=== PATIENT | female | born 1950 ===

== ENCOUNTER 2018-08-21 23:14 | Emergency (ER) | payer MEDICARE, OTHER ==
[2018-08-21] MEDS ORDERED: Sodium Chloride 0.9% 1,000 ML IV STA (23:33)
[2018-08-22 00:04] LABS: BASO # 0.1 K/uL (0.0-0.2); BASO % 1.2 % (0.0-2.0); EOS # 0.2 K/uL (0.0-0.7); EOS % 3.5 % (0.0-4.0); HEMOGLOBIN 11.2 g/dL (12.0-16.0); LYMPH # 0.5 K/uL (1.0-4.3); LYMPH % 10.7 % (20.0-40.0); MEAN CELL VOLUME 91.9 fl (81.0-99.0); MEAN CORPUSCULAR HEMOGLOBIN 31.7 pg (27.0-31.0); MEAN CORPUSCULAR HGB CONC 34.5 g/dL (33.0-37.0); MEAN PLATELET VOLUME 9.1 fl (7.2-11.7); MONO # 0.5 K/uL (0.0-0.8); MONO % 10.1 % (0.0-10.0); NEUT # 3.6 K/uL (1.8-7.0); NEUT % 74.5 % (50.0-75.0); NRBC % 0.1 % (0.0-0.0); RBC 3.52 Mil/uL (3.80-5.20); RED CELL DISTRIBUTION WIDTH 12.7 % (11.5-14.5); WHITE BLOOD COUNT 4.8 K/uL (4.8-10.8)
[2018-08-22 00:06] LABS: VENOUS BLOOD GAS PCO2 35 mmHg (40-60); VENOUS BLOOD GAS PO2 47 mm/Hg (30-55); VENOUS BLOOD PH 7.47 (7.32-7.43)
--- NOTE | 2018-08-22 00:11 | ED PDOC ---
HPI: Fever Time Seen by Provider: 08/21/18 23:29 Fever Onset Was: 08/13/18 What Antipyretic Given Prior To Arrival: Acetaminophen (q4-6 hour) Symptoms Associated With Fever: None Additional Comments: 68 yo female presents for evaluation of fever for over a week. PT states she feels tired with dizziness today. Pt states she was seen by Dr. Murillo and placed on cipro. Pt states she was told she had a UTI. Pt completed cipro but continued to have fever and is on 3rd day of bactrim. Pt reports no improvement. Pt states she has no urinary symptoms. Pt went to [employer] [place] this evening and felt lightheaded. Past Medical History Reviewed: Historical Data, Nursing Documentation, Vital Signs Vital Signs: Last Vital Signs Temp 98.3 F 08/22/18 02:34 Pulse 93 H 08/22/18 02:34 Resp 16 08/22/18 02:34 BP 124/83 08/22/18 02:34 Pulse Ox 100 08/22/18 02:34 - Medical History PMH: Diabetes, HTN, Hyperlipidemia - Surgical History Surgical History: No Surg Hx - Family History Family History: States: No Known Family Hx - Living Arrangements Living Arrangements: With Family - Social History Current smoker - smoking cessation education provided: No - Immunization History Hx Tetanus Toxoid Vaccination: No Hx Influenza Vaccination: No Hx Pneumococcal Vaccination: No - Home Medications Home Medications: Ambulatory Orders Medication Instructions Recorded Amitriptyline Hydrochloride 25 mg PO DAILY 07/04/13 [Elavil] Atenolol [Tenormin] 25 mg PO DAILY 07/04/13 Insulin Human (NPH)/Regular 30 units SUBCON BID 07/04/13 [Novolin 70/30 (70/30 units/ml) 10 ml] Lisinopril 20 mg PO DAILY 07/04/13 Meclizine [Meclizine*] 25 mg PO Q8H #30 tab 07/04/13 Pravastatin 07/04/13 Azithromycin [Zithromax Z-Grady] 08/07/15 Flovent Hfa 08/07/15 Mucinex 08/07/15 Ventolin HFA 90 mcg/actuation (8 g) 08/07/15 - Allergies Allergies/Adverse Reactions: Allergies Allergy/AdvReac Type Severity Reaction Status Date / Time No Known Allergies Allergy Verified 09/22/18 23:21 Review of Systems ROS Statement: Except As Marked, All Systems Reviewed And Found Negative Constitutional: Positive for: Fever, Chills Cardiovascular: Negative for: Chest Pain, Palpitations Respiratory: Negative for: Cough, Shortness of Breath Gastrointestinal: Negative for: Nausea, Vomiting Physical Exam - Reviewed Nursing Documentation Reviewed: Yes Vital Signs Reviewed: Yes - Physical Exam Appears: Positive for: Well, Non-toxic, No Acute Distress Head Exam: Positive for: ATRAUMATIC, NORMAL INSPECTION, NORMOCEPHALIC Skin: Positive for: Normal Color, Warm, DRY Eye Exam: Positive for: Normal appearance ENT: Positive for: Normal ENT Inspection Neck: Positive for: Normal, Painless ROM Cardiovascular/Chest: Positive for: Regular Rate, Rhythm Respiratory: Positive for: Normal Breath Sounds. Negative for: Accessory Muscle Use, Respiratory Distress Gastrointestinal/Abdominal: Positive for: Normal Exam, Soft. Negative for: Tenderness, Guarding, Rebound Back: Positive for: Normal Inspection Extremity: Positive for: Normal ROM Neurologic/Psych: Positive for: Alert, Oriented - Laboratory Results Result Diagrams: 08/21/18 23:55 08/21/18 23:55 - ECG O2 Sat by Pulse Oximetry: 97 Medical Decision Making Medical Decision Making: Labs reviewed from earlier in the week. * Urine with (+) nitrites and leuks. * High cholesterol. * WBC normal. no fever on re-evaluation. Tylenol at home > 4 hours ago. LAbs normal. CXR without acute cardiopulmonary disease. Urine normal. Discussed with Dr. Contreras. Disposition - Clinical Impression Clinical Impression: Viral illness - Patient ED Disposition Is Patient to be Admitted: No Counseled Patient/Family Regarding: Diagnosis, Need For Followup - Disposition Referrals: Bobo Murillo MD [Staff Provider] - Disposition: Routine/Home Disposition Time: 03:35 Condition: STABLE Instructions: Viral Syndrome (DC) Forms: [employer] (Turkmen) Print Language: ALBANIAN
[2018-08-22 00:37] LABS: ALB/GLOB RATIO 1.1 (1.0-2.1); ALBUMIN 4.1 g/dL (3.5-5.0); CALCIUM 9.5 mg/dL (8.4-10.2)
[2018-08-22 01:13] LABS: SQUAMOUS EPITHIAL 17 /hpf (0-5); URINE BACTERIA OCC (<OCC); URINE BILIRUBIN NEGATIVE (NEGATIVE); URINE BLOOD NEGATIVE (NEGATIVE); URINE CLARITY CLOUDY (Clear); URINE COLOR YELLOW (YELLOW); URINE GLUCOSE (UA) NEG (Normal); URINE LEUKOCYTE ESTERASE TRACE Leu/uL (Negative); URINE PROTEIN 100 mg/dL (NEGATIVE); URINE UROBILINOGEN 0.2-1.0 mg/dL (0.2-1.0)
[2018-08-22 02:34] VITALS: BP 124/83; PULSE 93; RESP 16; TEMP 98.3
[2018-08-22 03:39] VITALS: O2SAT 97
--- NOTE | 2018-08-22 07:58 | CT ---
Date of service: 08/22/2018 PROCEDURE: CT HEAD WITHOUT CONTRAST. HISTORY: dizziness, vomiting COMPARISON: None available. TECHNIQUE: Axial computed tomography images were obtained through the head/brain without intravenous contrast. Radiation dose: Total exam DLP = mGy-cm. This CT exam was performed using one or more of the following dose reduction techniques: Automated exposure control, adjustment of the mA and/or kV according to patient size, and/or use of iterative reconstruction technique. FINDINGS: HEMORRHAGE: No intracranial hemorrhage. BRAIN: No mass effect or edema. No atrophy or chronic microvascular ischemic changes. VENTRICLES: Unremarkable. No hydrocephalus. CALVARIUM: Unremarkable. PARANASAL SINUSES: Unremarkable as visualized. No significant inflammatory changes. MASTOID AIR CELLS: Unremarkable as visualized. No inflammatory changes. OTHER FINDINGS: None. IMPRESSION: Normal CT of the Head.
--- NOTE | 2018-08-22 08:35 | RAD ---
Date of service: 08/22/2018 HISTORY: fever COMPARISON: 04/02/2011 TECHNIQUE: Chest PA and lateral FINDINGS: LUNGS: No active pulmonary disease. PLEURA: No significant pleural effusion identified. No pneumothorax apparent. CARDIOVASCULAR: Normal. OSSEOUS STRUCTURES: No significant abnormalities. VISUALIZED UPPER ABDOMEN: Normal. OTHER FINDINGS: Stable nodule at the left base compatible with a granuloma. IMPRESSION: No active disease.
== END 2018-08-22 03:55 | disposition home or self-care (01) ==
LOC: H.ER 23:14
DX: B34.9 Viral infection, unspecified (principal); E11.9 Type 2 diabetes mellitus without complications; Z79.4 Long term (current) use of insulin; I10 Essential (primary) hypertension
CPT/HCPCS: 70450; 71046; 80053; 81003; 82803; 84484; 85025; 87040; 87804; 99283; J7030

== ENCOUNTER 2018-09-02 09:32 | Observation (INO) | payer MEDICARE, OTHER ==
[2018-09-02 09:37] VITALS: BMI 30.2
--- NOTE | 2018-09-02 10:21 | ED PDOC ---
HPI: General Adult Time Seen by Provider: 09/02/18 09:44 Chief Complaint (Nursing): Fever Chief Complaint (Provider): Fever History Per: Patient History/Exam Limitations: no limitations Onset/Duration Of Symptoms: Persistent Have you had recent travel within the past 21 days to any of the following countries: [place], [place], [place] or [place]?: No Current Symptoms Are (Timing): Still Present Recently: Seen In ED Additional History Per: Patient Additional Complaint(s): 68yo female, comes to ER reporting a low grade fever (measured between 99-100F) for the past 1 month. Patient was seen in this ED 2 weeks ago for similar complaints and had a negative workup at that time. Patient currently reports nausea but denies any sore throat, cough, abdominal pain, vomiting, diarrhea or urinary symptoms. She denies any weight loss as well. Past Medical History Reviewed: Historical Data, Nursing Documentation, Vital Signs Vital Signs: Last Vital Signs Temp 98 F 09/02/18 09:36 Pulse 101 H 09/02/18 09:36 Resp 20 09/02/18 09:36 BP 107/69 09/02/18 09:36 Pulse Ox 97 09/02/18 09:36 - Medical History PMH: Diabetes, HTN, Hyperlipidemia - Surgical History Surgical History: No Surg Hx - Family History Family History: States: No Known Family Hx - Immunization History Hx Tetanus Toxoid Vaccination: No Hx Influenza Vaccination: No Hx Pneumococcal Vaccination: No - Home Medications Home Medications: Ambulatory Orders Medication Instructions Recorded RX: Albuterol Sulfate [Ventolin 2 puff IH Q6 PRN 09/02/18 Hfa] RX: Amitriptyline [Elavil] 50 mg PO HS 09/02/18 RX: Atenolol [Tenormin] 25 mg PO DAILY 09/02/18 RX: Atorvastatin [Lipitor] 10 mg PO HS 09/02/18 RX: Calcium Carbonate/Vitamin D3 1 tab PO BID 09/02/18 [Calcium 500-Vit D3 200 Caplet] RX: Insulin NPH Hum/Reg Insulin Hm 50 unit SC BID 09/02/18 [Humulin 70-30 Vial] RX: Lisinopril/Hydrochlorothiazide 1 tab PO DAILY 09/02/18 [Lisinopril-Hctz 20-12.5 mg Tab] RX: Pantoprazole Sodium [Protonix] 40 mg PO DAILY 09/02/18 RX: Allopurinol [Zyloprim] 100 mg PO DAILY #0 09/03/18 RX: metFORMIN [glucOPHAGE] 500 mg PO BID #0 09/03/18 - Allergies Allergies/Adverse Reactions: Allergies Allergy/AdvReac Type Severity Reaction Status Date / Time No Known Allergies Allergy Verified 08/21/18 23:21 Review of Systems ROS Statement: Except As Marked, All Systems Reviewed And Found Negative Constitutional: Positive for: Fever. Negative for: Weight loss Cardiovascular: Negative for: Chest Pain Respiratory: Negative for: Shortness of Breath Gastrointestinal: Positive for: Nausea. Negative for: Vomiting, Abdominal Pain, Diarrhea Physical Exam - Reviewed Nursing Documentation Reviewed: Yes Vital Signs Reviewed: Yes - Physical Exam Appears: Positive for: Non-toxic, No Acute Distress Head Exam: Positive for: ATRAUMATIC, NORMAL INSPECTION, NORMOCEPHALIC Skin: Positive for: Normal Color, Warm, DRY Eye Exam: Positive for: EOMI, Normal appearance, PERRL ENT: Positive for: Normal ENT Inspection Neck: Positive for: Normal, Painless ROM Cardiovascular/Chest: Positive for: Regular Rate, Rhythm Respiratory: Positive for: CNT, Normal Breath Sounds Gastrointestinal/Abdominal: Positive for: Normal Exam, Soft. Negative for: Tenderness Back: Positive for: Normal Inspection. Negative for: L CVA Tenderness, R CVA Tenderness Extremity: Positive for: Normal ROM. Negative for: Pedal Edema Neurologic/Psych: Positive for: Alert, Oriented. Negative for: Motor/Sensory Deficits - Laboratory Results Result Diagrams: 09/03/18 05:45 09/03/18 05:45 - ECG O2 Sat by Pulse Oximetry: 97 (RA) Pulse Ox Interpretation: Normal Medical Decision Making Medical Decision Making: Impression: Fever Plan: -- Labs -- CT A/P -- Urinalysis -- Blood culture Scribe Attestation: Documented by Shruti Mojica, acting as a scribe for Jenaro Mejia MD. Provider Scribe Attestation: All medical record entries made by the Scribe were at my direction and personally dictated by me. I have reviewed the chart and agree that the record accurately reflects my personal performance of the history, physical exam, medical decision making, and the department course for this patient. I have also personally directed, reviewed, and agree with the discharge instructions and disposition. Disposition - Clinical Impression Clinical Impression: Fever - Patient ED Disposition Is Patient to be Admitted: Transfer of Care - Disposition Disposition: Transfer of Care Disposition Time: 15:00 Condition: STABLE Patient Signed Over To: Leeanne Gomes
[2018-09-02 10:37] LABS: BASO # 0.1 K/uL (0.0-0.2); BASO % 1.4 % (0.0-2.0); EOS % 0.9 % (0.0-4.0); HEMOGLOBIN 11.3 g/dL (12.0-16.0); LYMPH # 0.8 K/uL (1.0-4.3); LYMPH % 21.5 % (20.0-40.0); MEAN CELL VOLUME 92.7 fl (81.0-99.0); MEAN CORPUSCULAR HEMOGLOBIN 32.7 pg (27.0-31.0); MEAN CORPUSCULAR HGB CONC 35.3 g/dL (33.0-37.0); MONO # 0.6 K/uL (0.0-0.8); MONO % 14.9 % (0.0-10.0); NEUT # 2.3 K/uL (1.8-7.0); NEUT % 61.3 % (50.0-75.0); NRBC % 0.2 % (0.0-0.0); RBC 3.46 Mil/uL (3.80-5.20); RED CELL DISTRIBUTION WIDTH 12.9 % (11.5-14.5); WHITE BLOOD COUNT 3.7 K/uL (4.8-10.8)
[2018-09-02 10:49] LABS: SQUAMOUS EPITHIAL 33 /hpf (0-5); URINE BACTERIA FEW (<OCC); URINE BILIRUBIN NEGATIVE (NEGATIVE); URINE BLOOD NEGATIVE (NEGATIVE); URINE CLARITY CLOUDY (Clear); URINE COLOR YELLOW (YELLOW); URINE GLUCOSE (UA) NEG (Normal); URINE HYALINE CAST 0-2 /hpf (0-2); URINE LEUKOCYTE ESTERASE SMALL Leu/uL (Negative); URINE PROTEIN NEGATIVE (NEGATIVE); URINE UROBILINOGEN 0.2-1.0 mg/dL (0.2-1.0)
[2018-09-02 10:50] LABS: ALB/GLOB RATIO 1.1 (1.0-2.1); ALBUMIN 3.9 g/dL (3.5-5.0); CALCIUM 8.8 mg/dL (8.4-10.2)
[2018-09-02] MEDS ORDERED: Sodium Chloride 0.9% 50 ML IV ONE (11:32)
[2018-09-02] MEDS ORDERED: Iohexol 300 100 ML IJ ONE (11:32)
--- NOTE | 2018-09-02 15:18 | ED PDOC ---
- Laboratory Results Result Diagrams: 09/03/18 05:45 09/03/18 05:45 - ECG O2 Sat by Pulse Oximetry: 97 (RA) Pulse Ox Interpretation: Normal Medical Decision Making Medical Decision Making: Patient signed out to me by Dr. Mejia pending CT results, reassessment. 15:38 CT A/P FINDINGS: LOWER THORAX: Unremarkable. LIVER: Unremarkable. No gross lesion or ductal dilatation. GALLBLADDER AND BILE DUCTS: Unremarkable. PANCREAS: Unremarkable. No gross lesion or ductal dilatation. SPLEEN: Unremarkable. ADRENALS: Unremarkable. No mass. KIDNEYS AND URETERS: Unremarkable. No hydronephrosis. No solid mass. VASCULATURE: Unremarkable. No aortic aneurysm. BOWEL: Unremarkable. No obstruction. No gross mural thickening. APPENDIX: Normal appendix. PERITONEUM: No ascites. No pneumoperitoneum. There are soft tissue masses in the anterior parasagittal abdominal wall, within the subcutaneous fat extending to include the skin. The masses measure 1.7 x 4.0 x 4.5 cm on the right and 1.5 x 3.9 x 4.5 cm on the left. They have irregular borders. Significance uncertain. This could represent neoplasm or scar tissue. Please correlate with history. No other subcutaneous masses are identified elsewhere. LYMPH NODES: There are mildly enlarged bilateral pelvic lymph nodes up to 13 mm on the left and 9 mm on the right. Shotty pelvic and retroperitoneal nodes are noted. No significantly enlarged retroperitoneal nodes are identified. Significance uncertain. Shotty subcentimeter inguinal nodes are also noted bilaterally BLADDER: Unremarkable. REPRODUCTIVE: Unremarkable uterus BONES: No acute fracture. OTHER FINDINGS: None. IMPRESSION: Symmetric anterior abdominal wall soft tissue masses in the subcutaneous soft tissues extending to the skin. Significance uncertain. Correlate with history. Cannot rule out neoplastic disease. Mild pelvic lymphadenopathy. No other significant abnormality. 16:[address] Murillo, who will admit patient for further evaluation of possible lymphoma. Scribe Attestation: Documented by Shruti Mojica, acting as a scribe for Leeanne Gomes MD. Provider Scribe Attestation: All medical record entries made by the Scribe were at my direction and personally dictated by me. I have reviewed the chart and agree that the record accurately reflects my personal performance of the history, physical exam, medical decision making, and the department course for this patient. I have also personally directed, reviewed, and agree with the discharge instructions and disposition. Disposition - Clinical Impression Clinical Impression: Fever - POA Present On Arrival: None - Disposition Disposition: Admitted as In-Patient Disposition Time: 16:00 Condition: CRITICAL
--- NOTE | 2018-09-02 15:34 | CT ---
Date of service: 09/02/2018 PROCEDURE: CT Abdomen and Pelvis with contrast HISTORY: Abd pain COMPARISON: Not available TECHNIQUE: Contrast dose: 95 mL Omnipaque Radiation dose: Total exam DLP = 300 500.66 mGy-cm. This CT exam was performed using one or more of the following dose reduction techniques: Automated exposure control, adjustment of the mA and/or kV according to patient size, and/or use of iterative reconstruction technique. FINDINGS: LOWER THORAX: Unremarkable. LIVER: Unremarkable. No gross lesion or ductal dilatation. GALLBLADDER AND BILE DUCTS: Unremarkable. PANCREAS: Unremarkable. No gross lesion or ductal dilatation. SPLEEN: Unremarkable. ADRENALS: Unremarkable. No mass. KIDNEYS AND URETERS: Unremarkable. No hydronephrosis. No solid mass. VASCULATURE: Unremarkable. No aortic aneurysm. BOWEL: Unremarkable. No obstruction. No gross mural thickening. APPENDIX: Normal appendix. PERITONEUM: No ascites. No pneumoperitoneum. There are soft tissue masses in the anterior parasagittal abdominal wall, within the subcutaneous fat extending to include the skin. The masses measure 1.7 x 4.0 x 4.5 cm on the right and 1.5 x 3.9 x 4.5 cm on the left. They have irregular borders. Significance uncertain. This could represent neoplasm or scar tissue. Please correlate with history. No other subcutaneous masses are identified elsewhere. LYMPH NODES: There are mildly enlarged bilateral pelvic lymph nodes up to 13 mm on the left and 9 mm on the right. Shotty pelvic and retroperitoneal nodes are noted. No significantly enlarged retroperitoneal nodes are identified. Significance uncertain. Shotty subcentimeter inguinal nodes are also noted bilaterally BLADDER: Unremarkable. REPRODUCTIVE: Unremarkable uterus BONES: No acute fracture. OTHER FINDINGS: None. IMPRESSION: Symmetric anterior abdominal wall soft tissue masses in the subcutaneous soft tissues extending to the skin. Significance uncertain. Correlate with history. Cannot rule out neoplastic disease. Mild pelvic lymphadenopathy. No other significant abnormality.
--- NOTE | 2018-09-02 16:36 | CP.PCM.HP ---
History of Present Illness - History of Present Illness History of Present Illness: Patient seen and examined at bedside and information provided by patient and review of charts/labs/imaging. 68F p/w 1 month of fatigue, night sweats, mild nausea, mild loss of appetite. However, she denies any headaches, dizziness, SOB, cough, chest pain, palpitations, vomiting, abdominal pain, diarrhea/constipation/dysuria/vaginal bleeding. She reports last mammography was 12/2017 and normal as per patient, last colonoscopy 3-4 years ago and WNL as per patient and she denies any interim melena/hematochezia. PMD: Lidia PMH: HTN/DM/HLD PSH: None PFH: Denies family history of colon/intestine/stomach/ovarian/breast cancers ALL: NKDA ED COURSE AVSS CBC: mild, normocytic anemia, leukopenia CMP: mild hyponatremia, small hyperkalemia, no elevated proteins CT abd/pelvis: symmetyrical subcutaneous irregular masses and pelvic lymph node enlargement Present on Admission - Present on Admission Any Indicators Present on Admission: No Review of Systems - Review of Systems All systems: reviewed and no additional remarkable complaints except - Constitutional Constitutional: Fatigue, Night Sweats Past Patient History - Infectious Disease Hx of Infectious Diseases: None - Past Social History Smoking Status: Never Smoked - CARDIAC Hx Hypertension: Yes - ENDOCRINE/METABOLIC Hx Diabetes Mellitus Type 2: Yes - PSYCHIATRIC Hx Substance Use: No - ANESTHESIA Hx Anesthesia: No Meds Allergies/Adverse Reactions: Allergies Allergy/AdvReac Type Severity Reaction Status Date / Time No Known Allergies Allergy Verified 08/21/18 23:21 Physical Exam - Constitutional Appears: Non-toxic, No Acute Distress - Head Exam Head Exam: ATRAUMATIC, NORMAL INSPECTION - Eye Exam Eye Exam: EOMI, Normal appearance Pupil Exam: NORMAL ACCOMODATION - ENT Exam ENT Exam: Mucous Membranes Dry - Neck Exam Neck exam: Positive for: Full Rom, Normal Inspection. Negative for: Lymphadenopathy - Respiratory Exam Respiratory Exam: Clear to Auscultation Bilateral, NORMAL BREATHING PATTERN. absent: Rales, Rhonchi, Wheezes - Cardiovascular Exam Cardiovascular Exam: REGULAR RHYTHM, +S1, +S2 - GI/Abdominal Exam GI & Abdominal Exam: Normal Bowel Sounds, Soft. absent: Guarding - Extremities Exam Extremities exam: Positive for: full ROM, normal capillary refill, normal inspection, pedal pulses present. Negative for: pedal edema - Neurological Exam Neurological exam: Alert, Oriented x3 - Psychiatric Exam Psychiatric exam: Normal Affect, Normal Mood - Skin Skin Exam: Dry, Normal Color Results - Vital Signs Recent Vital Signs: Last Vital Signs Temp 36.8 C 09/02/18 14:36 Pulse 81 09/02/18 14:36 Resp 16 09/02/18 14:36 BP 123/78 09/02/18 14:36 Pulse Ox 97 09/02/18 16:01 - Labs Result Diagrams: 09/02/18 10:15 09/02/18 10:15 Labs: Laboratory Results - last 24 hr 09/02/18 09/02/18 09/02/18 10:15 10:15 10:15 WBC 3.7 L RBC 3.46 L Hgb 11.3 L Hct 32.1 L MCV 92.7 MCH 32.7 H MCHC 35.3 RDW 12.9 Plt Count 403 H MPV 9.0 Neut % (Auto) 61.3 Lymph % (Auto) 21.5 [place]on % (Auto) 14.9 H Eos % (Auto) 0.9 Baso % (Auto) 1.4 Neut # (Auto) 2.3 Lymph # (Auto) 0.8 L [place]on # (Auto) 0.6 Eos # (Auto) 0.0 Baso # (Auto) 0.1 Sodium 128 L Potassium 5.1 H Chloride 96 L Carbon Dioxide 22 Anion Gap 15 BUN 36 H Creatinine 1.3 H Est GFR ( Amer) 50 Est GFR (Non-Af Amer) 41 POC Glucose (mg/dL) Random Glucose 174 H Calcium 8.8 Total Bilirubin 0.4 AST 61 H ALT 63 H Alkaline Phosphatase 82 Total Protein 7.3 Albumin 3.9 Globulin 3.4 Albumin/Globulin Ratio 1.1 Urine Color Yellow Urine Clarity Cloudy Urine pH 5.0 Ur Specific [place] 1.013 Urine Protein Negative Urine Glucose (UA) Neg Urine Ketones Negative Urine Blood Negative Urine Nitrate Negative Urine Bilirubin Negative Urine Urobilinogen 0.2-1.0 Ur Leukocyte Esterase Small Urine RBC (Auto) 3 Urine Microscopic WBC 8 H Ur Squamous Epith Cells 33 H Ur Transition Epith Cell 1 Urine Bacteria Few H Hyaline Casts 0-2 09/02/18 15:15 WBC RBC Hgb Hct MCV MCH MCHC RDW Plt Count MPV Neut % (Auto) Lymph % (Auto) [place] % (Auto) Eos % (Auto) Baso % (Auto) Neut # (Auto) Lymph # (Auto) [place] # (Auto) Eos # (Auto) Baso # (Auto) Sodium Potassium Chloride Carbon Dioxide Anion Gap BUN Creatinine Est GFR ( Amer) Est GFR (Non-Af Amer) POC Glucose (mg/dL) 96 Random Glucose Calcium Total Bilirubin AST ALT Alkaline Phosphatase Total Protein Albumin Globulin Albumin/Globulin Ratio Urine Color Urine Clarity Urine pH Ur Specific [place] Urine Protein Urine Glucose (UA) Urine Ketones Urine Blood Urine Nitrate Urine Bilirubin Urine Urobilinogen Ur Leukocyte Esterase Urine RBC (Auto) Urine Microscopic WBC Ur Squamous Epith Cells Ur Transition Epith Cell Urine Bacteria Hyaline Casts Assessment & Plan (1) Febrile illness Status: Acute (2) DVT prophylaxis Assessment and Plan: Lovenox 40mg, SC, HS Status: Acute (3) Hyponatremia Status: Acute (4) Elevated serum creatinine Status: Acute (5) Hypertension Assessment and Plan: Resume medications Status: Chronic (6) Hyperlipidemia Status: Chronic
[2018-09-02] MEDS ORDERED: Albuterol HFA 90 mcg/actuation (8 g) IH PRN (16:46)
[2018-09-02] MEDS ORDERED: Glucagon Recombinant 1 mg Inj IM PRN (16:47)
[2018-09-02] MEDS ORDERED: Dextrose 50% SYRINGE Inj (50 ml) IV PRN (16:47)
[2018-09-02] MEDS ORDERED: Sodium Chloride 0.9% 1,000 ML IV SCH (17:00)
[2018-09-02] MEDS ORDERED: Calcium-Vit D 500 mg-200 Units Tab UD PO SCH (17:00)
[2018-09-02] MEDS ORDERED: Albuterol HFA 90 mcg/actuation (8 g) INH PRN (19:20)
[2018-09-02] MEDS ORDERED: Insulin NPH Human 100 Units/ml Inj SC SCH (19:30)
[2018-09-02] MEDS ORDERED: Enoxaparin 40 mg Syringe SC SCH (22:00)
[2018-09-02] MEDS: Calcium-Vit D 500 mg-200 Units Tab UD PO SCH (23:21)
[2018-09-03 06:20] LABS: BASO % 1.5 % (0.0-2.0); EOS % 1.1 % (0.0-4.0); HEMOGLOBIN 11.1 g/dL (12.0-16.0); LYMPH # 0.8 K/uL (1.0-4.3); LYMPH % 25.7 % (20.0-40.0); MEAN CELL VOLUME 92.3 fl (81.0-99.0); MEAN CORPUSCULAR HEMOGLOBIN 31.8 pg (27.0-31.0); MEAN CORPUSCULAR HGB CONC 34.5 g/dL (33.0-37.0); MEAN PLATELET VOLUME 8.9 fl (7.2-11.7); MONO # 0.7 K/uL (0.0-0.8); MONO % 22.5 % (0.0-10.0); NEUT # 1.6 K/uL (1.8-7.0); NEUT % 49.2 % (50.0-75.0); NRBC % 0.2 % (0.0-0.0); PLATELET COUNT 463 K/uL (130-400); RBC 3.49 Mil/uL (3.80-5.20); RED CELL DISTRIBUTION WIDTH 13.4 % (11.5-14.5); WHITE BLOOD COUNT 3.2 K/uL (4.8-10.8)
[2018-09-03 07:17] LABS: ALB/GLOB RATIO 1.1 (1.0-2.1); ALBUMIN 3.6 g/dL (3.5-5.0); CALCIUM 9.2 mg/dL (8.4-10.2)
[2018-09-03] MEDS: Insulin Lispro (humaLOG) 100 Units/ml Inj SC SCH ×3 (07:29→17:37)
[2018-09-03 07:52] VITALS: O2SAT 97
[2018-09-03] MEDS: Calcium-Vit D 500 mg-200 Units Tab UD PO SCH ×2 (08:08→17:43)
[2018-09-03] MEDS: Pantoprazole 40 mg EC Tab PO SCH ×2 (08:08→13:54)
[2018-09-03] MEDS: Insulin Lispro Mix 75/25 100 units/ml (HumaLog) 10ml SC SCH ×2 (08:08→17:40)
[2018-09-03] MEDS ORDERED: Patient's Own Med (Lisinopril/Hydrochlorothiazide [Lisinopril-Hctz 20-12.5 Mg Tab] 1 TAB) PO SCH (09:00)
[2018-09-03] MEDS ORDERED: Pantoprazole 40 mg EC Tab PO SCH (09:00)
[2018-09-03 10:00] LABS: BASOPHIL 2 % (0-2); EOSINOPHIL 1 % (0-7); LYMPHOCYTE 25 % (20-50); MONOCYTE 22 % (0-10); NEUTROPHIL 50 % (42-75); PLATELET ESTIMATE SLIGHTLY INCREASED (NORMAL); TOTAL CELLS COUNTED 100
[2018-09-03 10:01] LABS: ANISOCYTOSIS SLIGHT; LARGE PLATELETS PRESENT; OVALOCYTES MODERATE
[2018-09-03 10:31] LABS: PROTHROMBIN TIME 11.2 Seconds (9.8-13.1)
[2018-09-03 10:34] LABS: PARTIAL THROMBOPLASTIN TIME 46.6 Seconds (25.6-37.1)
--- NOTE | 2018-09-03 11:53 | PCM.IRP ---
History of Present Illness - History of Present Illness History of Present Illness: IR consulted for biopsy of pelvic lymph node. CT reviewed. Pt with several borderline prominant inguinal nodes and a larger 2.4 x 1cm node near the vessels. Size and location of nodes are not amenable to perc. FNA for lymphoma work up. Recommend repeat CT or US in near future to see if nodes become larger. At which point, core biopsy may be safely performed. Alternatively, surgical removal of a lymph node may be a consideration. Objective - Vital Signs/Intake and Output Vital Signs (last 24 hours): Vital Signs - 24 hr 09/02/18 09/02/18 09/02/18 14:36 16:01 17:30 Temperature 98.2 F 98.1 F Pulse Rate 81 98 H Respiratory 16 20 Rate Blood Pressure 123/78 156/83 H O2 Sat by Pulse 97 97 Oximetry 09/02/18 09/02/18 09/02/18 18:03 18:14 23:55 Temperature 98.1 F 98.0 F Pulse Rate 98 H 97 H Respiratory 20 20 18 Rate Blood Pressure 156/83 H 154/77 H O2 Sat by Pulse 99 98 Oximetry 09/03/18 09/03/18 07:51 08:08 Temperature 98.4 F Pulse Rate 94 H Respiratory 20 Rate Blood Pressure 147/75 147/75 O2 Sat by Pulse 97 Oximetry Intake and Output (last 12 hours): Intake & Output 09/02/18 09/03/18 09/03/18 18:59 06:59 18:59 Weight 160 lb - Medications Medications: Current Medications Albuterol (Ventolin Hfa 90 Mcg/Actuation (8 G)) 2 puff INH RQ6 PRN PRN Reason: Shortness of Breath Allopurinol (Zyloprim) 300 mg PO DAILY [facility] Last Admin: 09/03/18 08:11 Dose: Not Given Amitriptyline HCl (Elavil) 50 mg PO HS [facility] Last Admin: 09/02/18 23:21 Dose: 50 mg Atenolol (Tenormin) 25 mg PO DAILY [facility] Last Admin: 09/03/18 08:08 Dose: Not Given Atorvastatin Calcium (Lipitor) 10 mg PO HS [facility] Last Admin: 09/02/18 23:21 Dose: 10 mg Calcium/Vitamin D (Oyster Shell Calcium/Vitamin D 500 Mg-200 Iu) 1 tab PO BID [facility] Last Admin: 09/03/18 08:08 Dose: Not Given Dextrose (Dextrose 50% Inj) 0 ml IV STAT PRN; Protocol PRN Reason: Hypoglycemia Protocol Dextrose (Glutose 15) 0 gm PO ONCE PRN; Protocol PRN Reason: Hypoglycemia Protocol Enoxaparin Sodium (Lovenox) 40 mg SC HS [facility]; Protocol Glucagon (Glucagen Diagnostic Kit) 0 mg IM STAT PRN; Protocol PRN Reason: Hypoglycemia Protocol Hydrochlorothiazide (Microzide) 12.5 mg PO DAILY [facility] Last Admin: 09/03/18 08:08 Dose: Not Given Insulin Human Lispro (Humalog) 0 units SC ACHS [facility]; Protocol Last Admin: 09/03/18 07:29 Dose: Not Given Insulin Lispro Protam/Lispro Human (Humalog Mix 75/25) 50 units SC BID [facility] Last Admin: 09/03/18 08:08 Dose: Not Given Lisinopril (Zestril) 20 mg PO DAILY [facility] Last Admin: 09/03/18 08:11 Dose: Not Given Pantoprazole Sodium (Protonix Ec Tab) 40 mg PO DAILY [facility] Last Admin: 09/03/18 08:08 Dose: Not Given - Labs Labs (last 24 hours): Laboratory Results - last 24 hr 09/02/18 09/02/18 09/03/18 15:15 21:59 05:45 WBC 3.2 L RBC 3.49 L Hgb 11.1 L Hct 32.2 L MCV 92.3 MCH 31.8 H MCHC 34.5 RDW 13.4 Plt Count 463 H MPV 8.9 Neut % (Auto) 49.2 L Lymph % (Auto) 25.7 [place] % (Auto) 22.5 H Eos % (Auto) 1.1 Baso % (Auto) 1.5 Neut # (Auto) 1.6 L Lymph # (Auto) 0.8 L [place] # (Auto) 0.7 Eos # (Auto) 0.0 Baso # (Auto) 0.0 Neutrophils % (Manual) 50 Lymphocytes % (Manual) 25 Monocytes % (Manual) 22 H Eosinophils % (Manual) 1 Basophils % (Manual) 2 Platelet Estimate Slightly increased H Large Platelets Present Anisocytosis (manual) Slight Macrocytosis (manual) Slight Ovalocytes Moderate PT INR APTT Sodium Potassium Chloride Carbon Dioxide Anion Gap BUN Creatinine Est GFR ( Amer) Est GFR (Non-Af Amer) POC Glucose (mg/dL) 96 318 H Random Glucose Calcium Phosphorus Magnesium Total Bilirubin AST ALT Alkaline Phosphatase Lactate Dehydrogenase Total Protein Albumin Globulin Albumin/Globulin Ratio 09/03/18 09/03/18 09/03/18 05:45 05:50 06:49 WBC RBC Hgb Hct MCV MCH MCHC RDW Plt Count MPV Neut % (Auto) Lymph % (Auto) [place] % (Auto) Eos % (Auto) Baso % (Auto) Neut # (Auto) Lymph # (Auto) [place] # (Auto) Eos # (Auto) Baso # (Auto) Neutrophils % (Manual) Lymphocytes % (Manual) Monocytes % (Manual) Eosinophils % (Manual) Basophils % (Manual) Platelet Estimate Large Platelets Anisocytosis (manual) Macrocytosis (manual) Ovalocytes PT INR APTT Sodium 135 Potassium 4.7 Chloride 103 Carbon Dioxide 25 Anion Gap 12 BUN 27 H Creatinine 1.2 Est GFR ( Amer) 54 Est GFR (Non-Af Amer) 45 POC Glucose (mg/dL) 183 H Random Glucose 174 H Calcium 9.2 Phosphorus 3.6 Magnesium 2.1 Total Bilirubin 0.2 AST 59 H ALT 60 H Alkaline Phosphatase 100 Lactate Dehydrogenase 552 Total Protein 6.9 Albumin 3.6 Globulin 3.3 Albumin/Globulin Ratio 1.1 09/03/18 09/03/18 10:20 10:54 WBC RBC Hgb Hct MCV MCH MCHC RDW Plt Count MPV Neut % (Auto) Lymph % (Auto) [place] % (Auto) Eos % (Auto) Baso % (Auto) Neut # (Auto) Lymph # (Auto) [place] # (Auto) Eos # (Auto) Baso # (Auto) Neutrophils % (Manual) Lymphocytes % (Manual) Monocytes % (Manual) Eosinophils % (Manual) Basophils % (Manual) Platelet Estimate Large Platelets Anisocytosis (manual) Macrocytosis (manual) Ovalocytes PT 11.2 INR 1.0 APTT 46.6 H Sodium Potassium Chloride Carbon Dioxide Anion Gap BUN Creatinine Est GFR ( Amer) Est GFR (Non-Af Amer) POC Glucose (mg/dL) 184 H Random Glucose Calcium Phosphorus Magnesium Total Bilirubin AST ALT Alkaline Phosphatase Lactate Dehydrogenase Total Protein Albumin Globulin Albumin/Globulin Ratio
--- NOTE | 2018-09-03 12:06 | CP.PCM.CON ---
History of Present Illness - History of Present Illness History of Present Illness: 68 year old female with a history of HTN, DM, HL, presenting with fatigue, night sweats loss of appetite and concern for underlying malignancy. She notes to these symptoms for about 1 months time. She saw her PMD who referred her to the ER. In the ER, a CT A/P with IV contrast revealed subcutaneous nodules felt to be related to insulin injections and pelvic lymphadenopathy, largest 1.3cm. Interventional radiology has evaluated the patient for percutaneous biopsy but location and size prohibit biopsy. A CT scan of chest is pending. Of note, mammography was done on 12/2017 and normal as per patient, last colonoscopy 3-4 years ago and also normal per the patient. Past medical history: DM, HTN, HL Past surgical history: None Family history: Denies hematologic and oncologic problems Social history: Denies tobacco, alcohol, and illicit drug use. Allergies: NKA Review of systems: All remaining review of systems including HEENT, cardiovascular, respiratory, gastrointestinal, genitourinary, musculoskeletal, dermatologic, neurologic, and psychiatric are negative unless mentioned in the HPI. Past Patient History - Infectious Disease Hx of Infectious Diseases: None - Past Medical History & Family History Past Medical History?: Yes - Past Social History Smoking Status: Never Smoked - CARDIAC Hx Hypertension: Yes - ENDOCRINE/METABOLIC Hx Diabetes Mellitus Type 2: Yes - HEMATOLOGICAL/ONCOLOGICAL Hx Human Immunodeficiency Virus (HIV): No - MUSCULOSKELETAL/RHEUMATOLOGICAL Hx Falls: No - PSYCHIATRIC Hx Substance Use: No - ANESTHESIA Hx Anesthesia: No Meds Allergies/Adverse Reactions: Allergies Allergy/AdvReac Type Severity Reaction Status Date / Time No Known Allergies Allergy Verified 08/21/18 23:21 - Medications Medications: Current Medications Albuterol (Ventolin Hfa 90 Mcg/Actuation (8 G)) 2 puff INH RQ6 PRN PRN Reason: Shortness of Breath Allopurinol (Zyloprim) 300 mg PO DAILY [facility] Last Admin: 09/03/18 08:11 Dose: Not Given Amitriptyline HCl (Elavil) 50 mg PO [facility] Last Admin: 09/02/18 23:21 Dose: 50 mg Atenolol (Tenormin) 25 mg PO DAILY [facility] Last Admin: 09/03/18 08:08 Dose: Not Given Atorvastatin Calcium (Lipitor) 10 mg PO [facility] Last Admin: 09/02/18 23:21 Dose: 10 mg Calcium/Vitamin D (Oyster Shell Calcium/Vitamin D 500 Mg-200 Iu) 1 tab PO BID [facility] Last Admin: 09/03/18 08:08 Dose: Not Given Dextrose (Dextrose 50% Inj) 0 ml IV STAT PRN; Protocol PRN Reason: Hypoglycemia Protocol Dextrose (Glutose 15) 0 gm PO ONCE PRN; Protocol PRN Reason: Hypoglycemia Protocol Enoxaparin Sodium (Lovenox) 40 mg SC HS [facility]; Protocol Glucagon (Glucagen Diagnostic Kit) 0 mg IM STAT PRN; Protocol PRN Reason: Hypoglycemia Protocol Hydrochlorothiazide (Microzide) 12.5 mg PO DAILY [facility] Last Admin: 09/03/18 08:08 Dose: Not Given Insulin Human Lispro (Humalog) 0 units SC ACHS [facility]; Protocol Last Admin: 09/03/18 07:29 Dose: Not Given Insulin Lispro Protam/Lispro Human (Humalog Mix 75/25) 50 units SC BID [facility] Last Admin: 09/03/18 08:08 Dose: Not Given Lisinopril (Zestril) 20 mg PO DAILY [facility] Last Admin: 09/03/18 08:11 Dose: Not Given Pantoprazole Sodium (Protonix Ec Tab) 40 mg PO DAILY [facility] Last Admin: 09/03/18 08:08 Dose: Not Given Physical Exam - Head Exam Head Exam: ATRAUMATIC - Eye Exam Eye Exam: Normal appearance - ENT Exam ENT Exam: Mucous Membranes Dry - Respiratory Exam Respiratory Exam: NORMAL BREATHING PATTERN - Cardiovascular Exam Cardiovascular Exam: +S1, +S2 - GI/Abdominal Exam GI & Abdominal Exam: Normal Bowel Sounds - Neurological Exam Neurological exam: Oriented x3 - Psychiatric Exam Psychiatric exam: Normal Affect, Normal Mood - Skin Skin Exam: Warm Results - Vital Signs Recent Vital Signs: Last Vital Signs Temp 98.4 F 09/03/18 07:51 Pulse 94 H 09/03/18 07:51 Resp 20 09/03/18 07:51 BP 147/75 09/03/18 08:08 Pulse Ox 97 09/03/18 07:51 - Labs Result Diagrams: 09/03/18 05:45 09/03/18 05:45 Labs: Laboratory Results - last 24 hr 09/02/18 09/02/18 09/03/18 15:15 21:59 05:45 WBC 3.2 L RBC 3.49 L Hgb 11.1 L Hct 32.2 L MCV 92.3 MCH 31.8 H MCHC 34.5 RDW 13.4 Plt Count 463 H MPV 8.9 Neut % (Auto) 49.2 L Lymph % (Auto) 25.7 [place] % (Auto) 22.5 H Eos % (Auto) 1.1 Baso % (Auto) 1.5 Neut # (Auto) 1.6 L Lymph # (Auto) 0.8 L [place] # (Auto) 0.7 Eos # (Auto) 0.0 Baso # (Auto) 0.0 Neutrophils % (Manual) 50 Lymphocytes % (Manual) 25 Monocytes % (Manual) 22 H Eosinophils % (Manual) 1 Basophils % (Manual) 2 Platelet Estimate Slightly increased H Large Platelets Present Anisocytosis (manual) Slight Macrocytosis (manual) Slight Ovalocytes Moderate PT INR APTT Sodium Potassium Chloride Carbon Dioxide Anion Gap BUN Creatinine Est GFR ( Amer) Est GFR (Non-Af Amer) POC Glucose (mg/dL) 96 318 H Random Glucose Calcium Phosphorus Magnesium Total Bilirubin AST ALT Alkaline Phosphatase Lactate Dehydrogenase Total Protein Albumin Globulin Albumin/Globulin Ratio 09/03/18 09/03/18 09/03/18 05:45 05:50 06:49 WBC RBC Hgb Hct MCV MCH MCHC RDW Plt Count MPV Neut % (Auto) Lymph % (Auto) [place] % (Auto) Eos % (Auto) Baso % (Auto) Neut # (Auto) Lymph # (Auto) [place] # (Auto) Eos # (Auto) Baso # (Auto) Neutrophils % (Manual) Lymphocytes % (Manual) Monocytes % (Manual) Eosinophils % (Manual) Basophils % (Manual) Platelet Estimate Large Platelets Anisocytosis (manual) Macrocytosis (manual) Ovalocytes PT INR APTT Sodium 135 Potassium 4.7 Chloride 103 Carbon Dioxide 25 Anion Gap 12 BUN 27 H Creatinine 1.2 Est GFR ( Amer) 54 Est GFR (Non-Af Amer) 45 POC Glucose (mg/dL) 183 H Random Glucose 174 H Calcium 9.2 Phosphorus 3.6 Magnesium 2.1 Total Bilirubin 0.2 AST 59 H ALT 60 H Alkaline Phosphatase 100 Lactate Dehydrogenase 552 Total Protein 6.9 Albumin 3.6 Globulin 3.3 Albumin/Globulin Ratio 1.1 09/03/18 09/03/18 10:20 10:54 WBC RBC Hgb Hct MCV MCH MCHC RDW Plt Count MPV Neut % (Auto) Lymph % (Auto) [place] % (Auto) Eos % (Auto) Baso % (Auto) Neut # (Auto) Lymph # (Auto) [place] # (Auto) Eos # (Auto) Baso # (Auto) Neutrophils % (Manual) Lymphocytes % (Manual) Monocytes % (Manual) Eosinophils % (Manual) Basophils % (Manual) Platelet Estimate Large Platelets Anisocytosis (manual) Macrocytosis (manual) Ovalocytes PT 11.2 INR 1.0 APTT 46.6 H Sodium Potassium Chloride Carbon Dioxide Anion Gap BUN Creatinine Est GFR ( Amer) Est GFR (Non-Af Amer) POC Glucose (mg/dL) 184 H Random Glucose Calcium Phosphorus Magnesium Total Bilirubin AST ALT Alkaline Phosphatase Lactate Dehydrogenase Total Protein Albumin Globulin Albumin/Globulin Ratio Assessment & Plan (1) Pelvic lymphadenopathy Assessment and Plan: unknown etiology IR unable to biopsy due to location and size CT chest to complete staging outpatient surveillance imaging Status: Acute (2) Anemia Assessment and Plan: mild will check retic count, b12, folate, ferritin, FOBT, monoclonal protein Status: Acute (3) Leukopenia Assessment and Plan: no neutropenia will check hepatitis and HIV Thank you for this interesting consult. Status: Acute
--- NOTE | 2018-09-03 14:04 | CP.PCM.PN ---
Addendum entered by Yola Gil MD 09/03/18 18:47: Original Note: <Maxwell Adame - Last Filed: 09/03/18 16:24> Subjective - Date & Time of Evaluation Date of Evaluation: 09/03/18 Time of Evaluation: 14:01 - Subjective Subjective: 68 yo female seen and evaluated at bedside for fatigue, night sweats, nausea, and loss of appetite. Patient is AAOx3 and NAD. States that she is feeling better than yesterday and did not have trouble sleeping last night. She denies abdominal pain and states that she has no pain when urinating. She reports that the abdominal mass found is where she injects her insulin. She denies N/V/F/C/SOB at present and has no other complaints today. Objective - Vital Signs/Intake and Output Vital Signs (last 24 hours): Temp Pulse Resp BP Pulse Ox 98.4 F 94 H 20 147/75 97 09/03/18 07:51 09/03/18 13:59 09/03/18 07:51 09/03/18 13:59 09/03/18 07:51 - Medications Medications: Current Medications Albuterol (Ventolin Hfa 90 Mcg/Actuation (8 G)) 2 puff INH RQ6 PRN PRN Reason: Shortness of Breath Allopurinol (Zyloprim) 300 mg PO DAILY [facility] Last Admin: 09/03/18 13:58 Dose: 300 mg Amitriptyline HCl (Elavil) 50 mg PO [facility] Last Admin: 09/02/18 23:21 Dose: 50 mg Atenolol (Tenormin) 25 mg PO DAILY [facility] Last Admin: 09/03/18 08:00 Dose: 25 mg Atorvastatin Calcium (Lipitor) 10 mg PO HS [facility] Last Admin: 09/02/18 23:21 Dose: 10 mg Calcium/Vitamin D (Oyster Shell Calcium/Vitamin D 500 Mg-200 Iu) 1 tab PO BID [facility] Last Admin: 09/03/18 08:08 Dose: Not Given Dextrose (Dextrose 50% Inj) 0 ml IV STAT PRN; Protocol PRN Reason: Hypoglycemia Protocol Dextrose (Glutose 15) 0 gm PO ONCE PRN; Protocol PRN Reason: Hypoglycemia Protocol Enoxaparin Sodium (Lovenox) 40 mg SC [facility]; Protocol Glucagon (Glucagen Diagnostic Kit) 0 mg IM STAT PRN; Protocol PRN Reason: Hypoglycemia Protocol Hydrochlorothiazide (Microzide) 12.5 mg PO DAILY [facility] Last Admin: 09/03/18 13:58 Dose: 12.5 mg Insulin Human Lispro (Humalog) 0 units SC ACHS [facility]; Protocol Last Admin: 09/03/18 07:29 Dose: Not Given Insulin Lispro Protam/Lispro Human (Humalog Mix 75/25) 50 units SC BID [facility] Last Admin: 09/03/18 08:08 Dose: Not Given Lisinopril (Zestril) 20 mg PO DAILY [facility] Last Admin: 09/03/18 13:59 Dose: 20 mg Pantoprazole Sodium (Protonix Ec Tab) 40 mg PO DAILY [facility] Last Admin: 09/03/18 13:54 Dose: 40 mg - Labs Labs: 09/03/18 05:45 09/03/18 05:45 PT 11.2 Seconds (9.8-13.1) 09/03/18 10:20 INR 1.0 09/03/18 10:20 APTT 46.6 Seconds (25.6-37.1) H 09/03/18 10:20 - Constitutional Appears: Well, Non-toxic, No Acute Distress - Head Exam Head Exam: ATRAUMATIC - Eye Exam Eye Exam: EOMI, Normal appearance - ENT Exam ENT Exam: Mucous Membranes Moist, Normal Exam - Neck Exam Neck Exam: Normal Inspection - Respiratory Exam Respiratory Exam: NORMAL BREATHING PATTERN - Cardiovascular Exam Cardiovascular Exam: REGULAR RHYTHM, +S1, +S2 - GI/Abdominal Exam GI & Abdominal Exam: Soft, Normal Bowel Sounds - Extremities Exam Extremities Exam: Full ROM, Normal Capillary Refill, Normal Inspection - Back Exam Back Exam: NORMAL INSPECTION - Neurological Exam Neurological Exam: Alert, Awake, Oriented x3 - Psychiatric Exam Psychiatric exam: Normal Affect, Normal Mood - Skin Skin Exam: Dry, Intact, Normal Color, Warm Assessment and Plan - Assessment and Plan (Free Text) Assessment: 68 yo female seen and evaluated at bedside for fatigue, night sweats, nausea and loss of appetite Plan: 1. Subcutaneous abdominal mass with pelvic lymphadenopathy - CT abd/pelvis - symmetric anterior abdominal wall soft tissue mass in subcutaenous soft tissues extending to skin; significance uncertain, cannot rule out neoplastic disease, mild pevlic lymphadenopathy, no other significant abnormality - CT chest - ordered - IR consult regarding biopsy - unable to due to location and size - Heme/onc consulted - outpatient surveillence imaging - will follow up per recommendations 2. HTN - chronic, controlled - continue at home regimen 3. chronic anemia, unknown etiology - follow up with iron panel - follow up with B12 4. elevated transaminases, unknown etiology - will monitor daily LFTs/transminases 4. leukopenia, unknown etiology - consult heme/onc Dr. Black, recommendations appreciated, will follow up with further recommendations 3. HLD- chronic controlled - continue at home regimen 4. DM- chronic controlled - continue at home regimen 5. DVT prophylaxis - lovenox 40 mg sc <JefferyYolaharsh Ramirez - Last Filed: 09/03/18 18:30> Objective - Vital Signs/Intake and Output Vital Signs (last 24 hours): Temp Pulse Resp BP Pulse Ox 98.3 F 93 H 18 147/76 97 09/03/18 16:14 09/03/18 16:14 09/03/18 16:14 09/03/18 16:14 09/03/18 16:14 - Labs Labs: 09/03/18 05:45 09/03/18 05:45 PT 11.2 Seconds (9.8-13.1) 09/03/18 10:20 INR 1.0 09/03/18 10:20 APTT 46.6 Seconds (25.6-37.1) H 09/03/18 10:20 Attending/Attestation - Attestation I have personally seen and examined this patient.: Yes I have fully participated in the care of the patient.: Yes I have reviewed all pertinent clinical information, including history, physical exam and plan: Yes Notes (Text): Discharge Diagnosis: 1. Pelvic and Retroperitoneal Lymphadenopathy, unclear significance -too small to be biopsied - surveillance - pt to be followed up by Oncologist- Dr Black 2. Small Axillary LN ( 1.5 cm on the right) -Surgery appt as outpt for biopsy - referred to Dr Zamora
--- NOTE | 2018-09-03 15:48 | PQF ---
PROVIDER RESPONSE TEXT: Acute Kidney injury due to Hypovolemia REVIEWER QUERY TEXT: Clarification of Clinical Diagnostic Findings If known after the work up is completed: Is there an associated diagnosis to go along with the follow ing clinical labs?: BUN:36->27 Creatinine: 1.3->1.2 Est GFR (Af/Amer-Non-Af Amer);50/41->54/45 OR: Disagree OR: Other explanation of clinical finding ER notes in draft: 1st ER note: to ER reporting a low grade fever (measured between 99-100F) for the past 1 mnth. 2nd ER note: Case discussed with Dr. Murillo, who will admit patient for further evaluation of possibl e lymphoma. Admission order: Admitting dx.: Dehydration and lymphoma workup H and P:p/w 1 month of fatigue, night sweats, mild nausea, mild loss of appetite PMH: HTN/DM/HLD Assessment: (1) Febrile illness Status: Acute (2) DVT prophylaxis:Lovenox 40mg, SC, HS Status: Acute (3) Hyponatremia Status: Acute (4) Elevated serum creatinine Status: Acute (5) Hypertension Assess: Resume medis Status: Chronic (6) Hyperlipidemia Status: Chronic The patient's Clinical Indicators include: xx Query created by: Taty Chowdhury on 09/03/2018 2:16 PM Electronically signed by: Yola Gil MD 09/03/2018 3:45 PM
--- NOTE | 2018-09-03 16:11 | CP.PCM.DIS ---
<WendiMaxwell - Last Filed: 09/03/18 18:29> Provider - Provider Date of Admission: 09/02/18 16:03 Attending physician: Sean Soto MD Primary care physician: Lidia Consults: Heme/onc Time Spent in preparation of Discharge (in minutes): 30 Diagnosis - Discharge Diagnosis (1) Pelvic lymphadenopathy Status: Acute Hospital Course - Lab Results Lab Results: Micro Results 09/02/18 10:15 Blood Blood Culture - Preliminary NO GROWTH AFTER 24 HOURS Most Recent Lab Values WBC 3.2 K/uL (4.8-10.8) L 09/03/18 05:45 RBC 3.49 Mil/uL (3.80-5.20) L 09/03/18 05:45 Hgb 11.1 g/dL (12.0-16.0) L 09/03/18 05:45 Hct 32.2 % (34.0-47.0) L 09/03/18 05:45 MCV 92.3 fl (81.0-99.0) 09/03/18 05:45 MCH 31.8 pg (27.0-31.0) H 09/03/18 05:45 MCHC 34.5 g/dL (33.0-37.0) 09/03/18 05:45 RDW 13.4 % (11.5-14.5) 09/03/18 05:45 Plt Count 463 K/uL (130-400) H 09/03/18 05:45 MPV 8.9 fl (7.2-11.7) 09/03/18 05:45 Neut % (Auto) 49.2 % (50.0-75.0) L 09/03/18 05:45 Lymph % (Auto) 25.7 % (20.0-40.0) 09/03/18 05:45 Sanborn % (Auto) 22.5 % (0.0-10.0) H 09/03/18 05:45 Eos % (Auto) 1.1 % (0.0-4.0) 09/03/18 05:45 Baso % (Auto) 1.5 % (0.0-2.0) 09/03/18 05:45 Neut # (Auto) 1.6 K/uL (1.8-7.0) L 09/03/18 05:45 Lymph # (Auto) 0.8 K/uL (1.0-4.3) L 09/03/18 05:45 Sanborn # (Auto) 0.7 K/uL (0.0-0.8) 09/03/18 05:45 Eos # (Auto) 0.0 K/uL (0.0-0.7) 09/03/18 05:45 Baso # (Auto) 0.0 K/uL (0.0-0.2) 09/03/18 05:45 Neutrophils % (Manual) 50 % (42-75) 09/03/18 05:45 Lymphocytes % (Manual) 25 % (20-50) 09/03/18 05:45 Monocytes % (Manual) 22 % (0-10) H 09/03/18 05:45 Eosinophils % (Manual) 1 % (0-7) 09/03/18 05:45 Basophils % (Manual) 2 % (0-2) 09/03/18 05:45 Platelet Estimate Slightly increased (NORMAL) H 09/03/18 05:45 Large Platelets Present 09/03/18 05:45 Anisocytosis (manual) Slight 09/03/18 05:45 Macrocytosis (manual) Slight 09/03/18 05:45 Ovalocytes Moderate 09/03/18 05:45 Retic Count 1.3 % (0.5-1.5) 09/03/18 12:53 PT 11.2 Seconds (9.8-13.1) 09/03/18 10:20 INR 1.0 09/03/18 10:20 APTT 46.6 Seconds (25.6-37.1) H 09/03/18 10:20 Sodium 135 mmol/l (132-148) 09/03/18 05:45 Potassium 4.7 MMOL/L (3.6-5.0) 09/03/18 05:45 Chloride 103 mmol/L (98-107) 09/03/18 05:45 Carbon Dioxide 25 mmol/L (22-30) 09/03/18 05:45 Anion Gap 12 (10-20) 09/03/18 05:45 BUN 27 mg/dl (7-17) H 09/03/18 05:45 Creatinine 1.2 mg/dl (0.7-1.2) 09/03/18 05:45 Est GFR ( Amer) 54 09/03/18 05:45 Est GFR (Non-Af Amer) 45 09/03/18 05:45 POC Glucose (mg/dL) 326 mg/dL (65-110) H 09/03/18 15:58 Random Glucose 174 mg/dL (65-105) H 09/03/18 05:45 Calcium 9.2 mg/dL (8.4-10.2) 09/03/18 05:45 Phosphorus 3.6 mg/dl (2.5-4.5) 09/03/18 06:49 Magnesium 2.1 MG/DL (1.6-2.3) 09/03/18 06:49 Ferritin 434.0 ng/Ml (11.1-264.0) H 09/03/18 12:53 Total Bilirubin 0.2 mg/dl (0.2-1.3) 09/03/18 05:45 AST 59 U/L (14-36) H 09/03/18 05:45 ALT 60 U/L (9-52) H 09/03/18 05:45 Alkaline Phosphatase 100 U/L (38-126) 09/03/18 05:45 Lactate Dehydrogenase 552 U/L (313-618) 09/03/18 05:45 Total Protein 6.9 G/DL (6.3-8.2) 09/03/18 05:45 Albumin 3.6 g/dL (3.5-5.0) 09/03/18 05:45 Globulin 3.3 gm/dL (2.2-3.9) 09/03/18 05:45 Albumin/Globulin Ratio 1.1 (1.0-2.1) 09/03/18 05:45 Vitamin B12 654 pg/mL (239-931) 09/03/18 12:53 Urine Color Yellow (YELLOW) 09/02/18 10:15 Urine Clarity Cloudy (Clear) 09/02/18 10:15 Urine pH 5.0 (5.0-8.0) 09/02/18 10:15 Ur Specific Lutz 1.013 (1.003-1.030) 09/02/18 10:15 Urine Protein Negative mg/dL (NEGATIVE) 09/02/18 10:15 Urine Glucose (UA) Neg mg/dL (Normal) 09/02/18 10:15 Urine Ketones Negative mg/dL (NEGATIVE) 09/02/18 10:15 Urine Blood Negative (NEGATIVE) 09/02/18 10:15 Urine Nitrate Negative (NEGATIVE) 09/02/18 10:15 Urine Bilirubin Negative (NEGATIVE) 09/02/18 10:15 Urine Urobilinogen 0.2-1.0 mg/dL (0.2-1.0) 09/02/18 10:15 Ur Leukocyte Esterase Small Akash/uL (Negative) 09/02/18 10:15 Urine RBC (Auto) 3 /hpf (0-3) 09/02/18 10:15 Urine Microscopic WBC 8 /hpf (0-5) H 09/02/18 10:15 Ur Squamous Epith Cells 33 /hpf (0-5) H 09/02/18 10:15 Ur Transition Epith Cell 1 /hpf (0-3) 09/02/18 10:15 Urine Bacteria Few (<OCC) H 09/02/18 10:15 Hyaline Casts 0-2 /hpf (0-2) 09/02/18 10:15 - Hospital Course Hospital Course: 68 yo female admitted for fatigue, night sweats, nausea and loss of appetite. Abdominal/pelvic CT was taken upon admission which showed a symmetric anterior abdominal wall soft tissue mass in subcutaneous soft tissues extending to skin; significance uncertain, cannot rule out neoplastic disease, mild pevlic lymphadenopathy, no other significant abnormality. Heme/onc was consulted and discussed with IR regarding a biospy of subcutaneous soft tissue abdominal mass where patient was injecting insulin, unable to perform due to location and size of mass. CT of the chest was ordered to rule out any masses or pathology showed small b/l axillary lymphadenopathy. Largest noted right axilla/chest wall region measures 13 x 15 mm. Additional smaller axillary lymph nodes b/l. Heme/onc stated she will follow up with outpatient surveillance imaging. Patient is stable for discharge, advised her to not take metformin on Thu and thursday because of the contrast in her system from the imaging. , HTN, and HLD. If symptoms return or any other acute problems occur patient is aware to come to ED for workup and care. 1. Subcutaneous abdominal mass with pelvic lymphadenopathy - CT abd/pelvis - symmetric anterior abdominal wall soft tissue mass in subcutaenous soft tissues extending to skin; significance uncertain, cannot rule out neoplastic disease, mild pevlic lymphadenopathy, no other significant abnormality - CT chest - ordered - IR consult regarding biopsy - unable to due to location and size - Heme/onc consulted - outpatient surveillence imaging. - Have given script to patient to follow up with Dr. Barroso for excisional right axially lymph node biopsy. - will follow up per recommendations 2. HTN - chronic, controlled - continue at home regimen 3. HLD- chronic controlled - continue at home regimen 4. DM- chronic controlled - Skip dose of metformin on Thursday and Thursday. - continue at home regimen Discharge Exam - Head Exam Head Exam: ATRAUMATIC - Eye Exam Eye Exam: Normal appearance - ENT Exam ENT Exam: Mucous Membranes Dry - Respiratory Exam Respiratory Exam: Clear to PA & Lateral, NORMAL BREATHING PATTERN. absent: Rales, Wheezes - Cardiovascular Exam Cardiovascular Exam: REGULAR RHYTHM, +S1, +S2 - GI/Abdominal Exam GI & Abdominal Exam: Normal Bowel Sounds, Soft - Neurological Exam Neurological exam: Alert, CN II-XII Intact, Oriented x3 Discharge Plan - Follow Up Plan Condition: STABLE Disposition: HOME/ ROUTINE Instructions: Dehydration, Adult (DC), Fever, Adult (DC) Additional Instructions: hacer bill con gallegos primario dentro de [address] Black en 1 semana Hold Metformin - restart on Thursday Referrals: Roel Black MD [Staff Provider] - Isreal Zamora MD [Staff Provider] - Bobo Murillo MD [Family Provider] - <Yola Gil - Last Filed: 09/03/18 18:48> Provider - Provider Date of Admission: 09/02/18 16:03 Attending physician: Sean Soto MD Hospital Course - Lab Results Lab Results: Micro Results 09/02/18 10:15 Urine Urine Culture - Preliminary Gram Positive Cocci 09/02/18 10:15 Blood Blood Culture - Preliminary NO GROWTH AFTER 24 HOURS Most Recent Lab Values WBC 3.2 K/uL (4.8-10.8) L 09/03/18 05:45 RBC 3.49 Mil/uL (3.80-5.20) L 09/03/18 05:45 Hgb 11.1 g/dL (12.0-16.0) L 09/03/18 05:45 Hct 32.2 % (34.0-47.0) L 09/03/18 05:45 MCV 92.3 fl (81.0-99.0) 09/03/18 05:45 MCH 31.8 pg (27.0-31.0) H 09/03/18 05:45 MCHC 34.5 g/dL (33.0-37.0) 09/03/18 05:45 RDW 13.4 % (11.5-14.5) 09/03/18 05:45 Plt Count 463 K/uL (130-400) H 09/03/18 05:45 MPV 8.9 fl (7.2-11.7) 09/03/18 05:45 Neut % (Auto) 49.2 % (50.0-75.0) L 09/03/18 05:45 Lymph % (Auto) 25.7 % (20.0-40.0) 09/03/18 05:45 Sanborn % (Auto) 22.5 % (0.0-10.0) H 09/03/18 05:45 Eos % (Auto) 1.1 % (0.0-4.0) 09/03/18 05:45 Baso % (Auto) 1.5 % (0.0-2.0) 09/03/18 05:45 Neut # (Auto) 1.6 K/uL (1.8-7.0) L 09/03/18 05:45 Lymph # (Auto) 0.8 K/uL (1.0-4.3) L 09/03/18 05:45 Sanborn # (Auto) 0.7 K/uL (0.0-0.8) 09/03/18 05:45 Eos # (Auto) 0.0 K/uL (0.0-0.7) 09/03/18 05:45 Baso # (Auto) 0.0 K/uL (0.0-0.2) 09/03/18 05:45 Neutrophils % (Manual) 50 % (42-75) 09/03/18 05:45 Lymphocytes % (Manual) 25 % (20-50) 09/03/18 05:45 Monocytes % (Manual) 22 % (0-10) H 09/03/18 05:45 Eosinophils % (Manual) 1 % (0-7) 09/03/18 05:45 Basophils % (Manual) 2 % (0-2) 09/03/18 05:45 Platelet Estimate Slightly increased (NORMAL) H 09/03/18 05:45 Large Platelets Present 09/03/18 05:45 Anisocytosis (manual) Slight 09/03/18 05:45 Macrocytosis (manual) Slight 09/03/18 05:45 Ovalocytes Moderate 09/03/18 05:45 Retic Count 1.3 % (0.5-1.5) 09/03/18 12:53 PT 11.2 Seconds (9.8-13.1) 09/03/18 10:20 INR 1.0 09/03/18 10:20 APTT 46.6 Seconds (25.6-37.1) H 09/03/18 10:20 Sodium 135 mmol/l (132-148) 09/03/18 05:45 Potassium 4.7 MMOL/L (3.6-5.0) 09/03/18 05:45 Chloride 103 mmol/L (98-107) 09/03/18 05:45 Carbon Dioxide 25 mmol/L (22-30) 09/03/18 05:45 Anion Gap 12 (10-20) 09/03/18 05:45 BUN 27 mg/dl (7-17) H 09/03/18 05:45 Creatinine 1.2 mg/dl (0.7-1.2) 09/03/18 05:45 Est GFR ( Amer) 54 09/03/18 05:45 Est GFR (Non-Af Amer) 45 09/03/18 05:45 POC Glucose (mg/dL) 326 mg/dL (65-110) H 09/03/18 15:58 Random Glucose 174 mg/dL (65-105) H 09/03/18 05:45 Calcium 9.2 mg/dL (8.4-10.2) 09/03/18 05:45 Phosphorus 3.6 mg/dl (2.5-4.5) 09/03/18 06:49 Magnesium 2.1 MG/DL (1.6-2.3) 09/03/18 06:49 Ferritin 434.0 ng/Ml (11.1-264.0) H 09/03/18 12:53 Total Bilirubin 0.2 mg/dl (0.2-1.3) 09/03/18 05:45 AST 59 U/L (14-36) H 09/03/18 05:45 ALT 60 U/L (9-52) H 09/03/18 05:45 Alkaline Phosphatase 100 U/L (38-126) 09/03/18 05:45 Lactate Dehydrogenase 552 U/L (313-618) 09/03/18 05:45 Total Protein 6.9 G/DL (6.3-8.2) 09/03/18 05:45 Albumin 3.6 g/dL (3.5-5.0) 09/03/18 05:45 Globulin 3.3 gm/dL (2.2-3.9) 09/03/18 05:45 Albumin/Globulin Ratio 1.1 (1.0-2.1) 09/03/18 05:45 Vitamin B12 654 pg/mL (239-931) 09/03/18 12:53 Urine Color Yellow (YELLOW) 09/02/18 10:15 Urine Clarity Cloudy (Clear) 09/02/18 10:15 Urine pH 5.0 (5.0-8.0) 09/02/18 10:15 Ur Specific Lutz 1.013 (1.003-1.030) 09/02/18 10:15 Urine Protein Negative mg/dL (NEGATIVE) 09/02/18 10:15 Urine Glucose (UA) Neg mg/dL (Normal) 09/02/18 10:15 Urine Ketones Negative mg/dL (NEGATIVE) 09/02/18 10:15 Urine Blood Negative (NEGATIVE) 09/02/18 10:15 Urine Nitrate Negative (NEGATIVE) 09/02/18 10:15 Urine Bilirubin Negative (NEGATIVE) 09/02/18 10:15 Urine Urobilinogen 0.2-1.0 mg/dL (0.2-1.0) 09/02/18 10:15 Ur Leukocyte Esterase Small Akash/uL (Negative) 09/02/18 10:15 Urine RBC (Auto) 3 /hpf (0-3) 09/02/18 10:15 Urine Microscopic WBC 8 /hpf (0-5) H 09/02/18 10:15 Ur Squamous Epith Cells 33 /hpf (0-5) H 09/02/18 10:15 Ur Transition Epith Cell 1 /hpf (0-3) 09/02/18 10:15 Urine Bacteria Few (<OCC) H 09/02/18 10:15 Hyaline Casts 0-2 /hpf (0-2) 09/02/18 10:15 Attending/Attestation - Attestation I have personally seen and examined this patient.: Yes I have fully participated in the care of the patient.: Yes I have reviewed all pertinent clinical information, including history, physical exam and plan: Yes Notes (Text): Discharge Diagnosis: 1. Pelvic and Retroperitoneal Lymphadenopathy, unclear significance -too small to be biopsied - surveillance - pt to be followed up by Oncologist- Dr Black 2. Small Axillary LN ( 1.5 cm on the right) -Surgery appt as outpt for biopsy - referred to Dr Zamora
[2018-09-03 16:16] VITALS: BP 147/76; PULSE 93; RESP 18; TEMP 98.3
[2018-09-03] MEDS ORDERED: Iohexol 300 100 ML IJ ONE (16:32)
[2018-09-03] MEDS ORDERED: Sodium Chloride 0.9% 50 ML IV ONE (16:32)
--- NOTE | 2018-09-03 17:44 | CT ---
Date of service: 09/03/2018 PROCEDURE: CT Chest with contrast HISTORY: Dehydration, lymphoma workup. COMPARISON: 09/02/2018 CT abdomen and pelvis TECHNIQUE: Contiguous axial images were obtained through the chest with intravenous contrast enhancement. Sagittal and coronal reconstructions were performed. IV contrast: 95 cc Omnipaque 300 Radiation dose (DLP): 342.31 mGy-cm. This CT exam was performed using one or more of the following dose reduction techniques: Automated exposure control, adjustment of the mA and/or kV according to patient size, and/or use of iterative reconstruction technique. FINDINGS: LUNGS: Clear lungs. Visualized airway clear.Incidental finding(s): Subcentimeter calcified granuloma left lower lobe. MEDIASTINUM: Unremarkable thoracic aorta. No aneurysm or dissection. Normal sized heart. Main pulmonary artery unremarkable. No vascular congestion. No lymphadenopathy. PLEURA: No pleural fluid. No pneumothorax. BONES: No fracture. No destructive lesion. UPPER ABDOMEN: Grossly unremarkable. OTHER FINDINGS: Bilateral axillary lymphadenopathy. Largest noted right axilla/chest wall region measures 13 x 15 mm. Additional smaller axillary lymph nodes bilaterally. IMPRESSION: Small bilateral axillary lymph nodes. The largest in the right axilla 13 x 15 mm. Additional benign and/or incidental findings described above.
[2018-09-03 22:36] LABS: HEPATITIS B SURFACE AG Negative (NEGATIVE)
[2018-09-03 22:41] LABS: HEPATITIS A IGM NEGATIVE (NEGATIVE)
[2018-09-03 23:07] LABS: FOLATE 11.7 ng/mL
[2018-09-03 23:31] LABS: HEPATITIS C ANTIBODY NEGATIVE (NEGATIVE)
[2018-09-04 03:09] LABS: HEPATITIS B CORE AB NEGATIVE (NEGATIVE)
== END 2018-09-03 18:17 | disposition home or self-care (01) ==
LOC: H.ER 09:32 → INTOOBSV 16:03 → H.ERHOLD 16:03 → H.MEDSURG1 18:02
PROVIDERS: ADMIT Internal Medicine; ATTEND Internal Medicine
DX: R59.1 Generalized enlarged lymph nodes (principal); R19.09 Other intra-abdominal and pelvic swelling, mass and lump; I10 Essential (primary) hypertension; E78.5 Hyperlipidemia, unspecified; D64.9 Anemia, unspecified; E11.9 Type 2 diabetes mellitus without complications; D72.819 Decreased white blood cell count, unspecified; E87.1 Hypo-osmolality and hyponatremia; E87.5 Hyperkalemia
CPT/HCPCS: 36415; 71260; 74177; 80053; 80074; 81003; 82607; 82728; 82746; 82948; 83615; 83735; 83883; 84100; 84155; 84165; 85025; 85044; 85610; 85730; 86334; 86703; 87040; 87086; 87181; 99285; G0378; J7030; Q9967

== ENCOUNTER 2018-09-20 20:52 | Emergency (ER) | payer MEDICARE, OTHER ==
[2018-09-20 20:52] VITALS: BMI 30.2
--- NOTE | 2018-09-20 23:10 | ED PDOC ---
HPI: Abdomen Time Seen by Provider: 09/20/18 22:00 Chief Complaint (Nursing): GI Problem Chief Complaint (Provider): Constipation History Per: Patient History/Exam Limitations: no limitations Onset/Duration Of Symptoms: Days (x3) Additional Complaint(s): Matilde Laguerre, a 68 year old female with past medical history of hypertension, diabetes and hypercholesterolemia, presents to the emergency room with constipation onset 3 days. Patient reports trying home remedies like milk, hot milk and tea with no relief. She states she called her doctor, Dr. Murillo, who suggested a visit to the ED. Patient denies fever, vomiting or diarrhea but reports feeling a little nauseous. No further medical complaints. pt denies fever/vomiting.pt is passing gas though. PMD: Bobo Murillo Past Medical History Reviewed: Historical Data, Nursing Documentation, Vital Signs Vital Signs: Last Vital Signs Temp 98.5 F 09/20/18 21:55 Pulse 119 H 09/20/18 21:55 Resp 16 09/20/18 21:55 BP 155/75 H 09/20/18 21:55 Pulse Ox 98 09/20/18 21:55 - Medical History PMH: Diabetes, HTN, Hyperlipidemia Denies: HIV - Surgical History Surgical History: No Surg Hx - Family History Family History: States: Unknown Family Hx - Social History Current smoker - smoking cessation education provided: No Alcohol: None Drugs: Denies - Immunization History Hx Tetanus Toxoid Vaccination: No Hx Influenza Vaccination: No Hx Pneumococcal Vaccination: No - Home Medications Home Medications: Ambulatory Orders Medication Instructions Recorded RX: Albuterol Sulfate [Ventolin 2 puff IH Q6 PRN 09/02/18 Hfa] RX: Amitriptyline [Elavil] 50 mg PO HS 09/02/18 RX: Atenolol [Tenormin] 25 mg PO DAILY 09/02/18 RX: Atorvastatin [Lipitor] 10 mg PO HS 09/02/18 RX: Calcium Carbonate/Vitamin D3 1 tab PO BID 09/02/18 [Calcium 500-Vit D3 200 Caplet] RX: Insulin NPH Hum/Reg Insulin Hm 50 unit SC BID 09/02/18 [Humulin 70-30 Vial] RX: Lisinopril/Hydrochlorothiazide 1 tab PO DAILY 09/02/18 [Lisinopril-Hctz 20-12.5 mg Tab] RX: Pantoprazole Sodium [Protonix] 40 mg PO DAILY 09/02/18 RX: Allopurinol [Zyloprim] 100 mg PO DAILY #0 09/03/18 RX: metFORMIN [glucOPHAGE] 500 mg PO BID #0 09/03/18 Docusate Sodium [Colace] 100 mg PO BID PRN #10 capsule 09/21/18 - Allergies Allergies/Adverse Reactions: Allergies Allergy/AdvReac Type Severity Reaction Status Date / Time No Known Allergies Allergy Verified 08/21/18 23:21 Review of Systems ROS Statement: Except As Marked, All Systems Reviewed And Found Negative Constitutional: Negative for: Fever Gastrointestinal: Positive for: Nausea, Constipation. Negative for: Vomiting, Diarrhea Physical Exam - Reviewed Nursing Documentation Reviewed: Yes Vital Signs Reviewed: Yes - Physical Exam Appears: Positive for: Well, Non-toxic, No Acute Distress Head Exam: Positive for: ATRAUMATIC, NORMAL INSPECTION, NORMOCEPHALIC Skin: Positive for: Normal Color, Warm, DRY Eye Exam: Positive for: EOMI, Normal appearance, PERRL ENT: Positive for: Normal ENT Inspection Neck: Positive for: Normal Cardiovascular/Chest: Positive for: Regular Rate, Rhythm Respiratory: Positive for: CNT, Normal Breath Sounds Gastrointestinal/Abdominal: Positive for: Bowel Sounds, Soft, Distended (slightly). Negative for: Mass, Guarding, Rebound Back: Positive for: Normal Inspection Extremity: Positive for: Normal ROM Neurologic/Psych: Positive for: Alert, Oriented - ECG O2 Sat by Pulse Oximetry: 98 (RA) Pulse Ox Interpretation: Normal Medical Decision Making Medical Decision Making: Time: 22:42 Initial Impression: Initial Plan: constipation after enema, (pt refused lactulose) -patient had a bowel movement and will be discharged home/ she states she feels much improved. her repeat abdominal exam is benign. pt tolerated po in the ER. Scribe Attestation: Documented by Carina Lama, acting as a scribe for Brooklyn Lott MD. Provider Scribe Attestation: All medical record entries made by the Scribe were at my direction and personally dictated by me. I have reviewed the chart and agree that the record accurately reflects my personal performance of the history, physical exam, medical decision making, and the department course for this patient. I have also personally directed, reviewed, and agree with the discharge instructions and disposition. Disposition - Clinical Impression Clinical Impression: Constipation - Patient ED Disposition Is Patient to be Admitted: No Counseled Patient/Family Regarding: Studies Performed, Diagnosis, Need For Followup - Disposition Disposition: Routine/Home Disposition Time: 00:25 Condition: IMPROVED Additional Instructions: follow up with Dr murillo in 1-2 days eat high fiber diet drink plenty of water return to the ED with any worsening or concerning symptoms Prescriptions: Docusate Sodium [Colace] 100 mg PO BID PRN #10 capsule PRN Reason: Constipation Instructions: Constipation, Adult (DC) Forms: Pict (Hungarian), Pict (American) Print Language: ESTONIAN
[2018-09-21 01:09] VITALS: BP 144/75; PULSE 109; RESP 18; TEMP 97.9
[2018-09-21 05:41] VITALS: O2SAT 98
== END 2018-09-21 01:10 | disposition home or self-care (01) ==
LOC: H.ER 20:52
DX: K59.00 Constipation, unspecified (principal); E11.9 Type 2 diabetes mellitus without complications; I10 Essential (primary) hypertension; Z79.4 Long term (current) use of insulin; Z79.899 Other long term (current) drug therapy; E78.5 Hyperlipidemia, unspecified